=== PATIENT | female | born 1995 | race Caucasian/White ===

== ENCOUNTER 2021-03-23 15:26 | Emergency (ER) | payer OTHER ==
[~2021-03-23] VITALS: Ht 154.9 cm; Wt 57.2 kg
[2021-03-23 15:38] VITALS: BP 113/66
--- NOTE | 2021-03-23 15:47 | NUR ---
PT AMBULATED WITH DAUGHTER TO BED 1
--- NOTE | 2021-03-23 16:03 | NUR ---
26/F BIB SELF WITH C/O HEADACHE X5 DAYS. PATIENT STATES SHE HAS HX OF HEADACHES BUT STATES SHE HAS BEEN UNABLE TO FIND RELIEF. DENIES INJURY OR TRAUMA, REPORTS TAKING TYLENOL AND MOTRIN WITH NO RELIEF. PATIENT STATES PAIN HAS BEEN RADIATING TO RIGHT EAR AND JAW, REPORTS 9/10 THROBBING CONSTANT PAIN. DENIES DIZZINESS, BLURRED VISION, CP OR SOB.
[2021-03-23] MEDS ORDERED: ACETAMINOPHEN 325 MG TAB PO ONE (16:10)
--- NOTE | 2021-03-23 16:25 | NUR ---
PATIENT TAKEN TO CT
[2021-03-23] MEDS ORDERED: METOCLOPRAMIDE 10 MG TAB PO ONE (17:10)
[2021-03-23] MEDS ORDERED: KETOROLAC 30 MG/ML VIAL IM ONE (17:10)
[2021-03-23] MEDS ORDERED: IBUP-2213 PO (17:43)
--- NOTE | 2021-03-23 17:50 | NUR ---
Patient discharged with v/s stable. Written and verbal after care instructions ABOUT GENERAL HEADACHE WITHOUT CAUSE given and explained. Patient alert, oriented and verbalized understanding of instructions. Ambulatory with steady gait. All questions addressed prior to discharge. ID band removed. Patient advised to follow up with PMD. Rx of IBUPROFEN given. Patient educated on indication of medication including possible reaction and side effects. Opportunity to ask questions provided and answered.
== END 2021-03-23 17:50 | disposition home or self-care (01) ==
LOC: MED 15:26
DX: R51.9 Headache, unspecified (principal); H53.149 Visual discomfort, unspecified; Z79.899 Other long term (current) drug therapy; Z88.5 Allergy status to narcotic agent
CPT/HCPCS: 70450; 81025; 96372; 99284; J1885; J8597